=== PATIENT | female | born 1960 | race Two or more races ===

== ENCOUNTER 2018-12-03 15:52 | Emergency (ER) | payer MEDICAID, OTHER ==
[~2018-12-03] VITALS: Ht 165.1 cm; Wt 113.4 kg
[2018-12-03 16:45] LABS: Urine Bacteria NONE SEEN /hpf (None Seen); Urine Blood Negative /uL (Negative); Urine Specific Gravity 1.006 (1.001-1.035); Urine WBC 2 /hpf (0 - 5)
[2018-12-03 16:52] LABS: Basophils # (auto) 0.1 uL; Basophils % (auto) 0.5 % (0.0-2.0); Eosinophils # (auto) 0.1 uL; Eosinophils % (auto) 0.9 % (0.0-7.0); Hematocrit 44.8 % (36.0-46.0); Hemoglobin 15.3 g/dL (12.2-16.2); Lymphocytes % (auto) 29.4 % (10.0-50.0); Mean Corpuscular Hemoglobin 31.2 pg (28.0-32.0); Mean Corpuscular Hgb Conc. 34.1 g/dL (32.0-36.0); Mean Corpuscular Volume 91.6 fL (80.0-100.0); Monocytes # (auto) 0.5 uL; Monocytes % (auto) 5.1 % (0.0-12.0); Neutrophils # (auto) 6.6 uL; Neutrophils % (auto) 64.1 % (37.0-80.0); Platelet Count (auto) 356 10^3/uL (140-450); Red Blood Cells 4.89 10^6/uL (4.0-5.20); Red Cell Distribution Width 13.9 % (11.8-14.3); White Blood Cell 10.3 10^3/uL (4.4-10.8)
[2018-12-03 17:09] LABS: Alanine Aminotransferase 349 U/L (13-56); Albumin 3.7 g/dL (3.4-5.0); Anion Gap 7 (5-15); Aspartate Aminotransferase 547 U/L (15-37); BUN/Creatinine Ratio 8.9; Blood Urea Nitrogen 7 mg/dL (7-18); Calcium 8.4 mg/dL (8.5-10.1); Carbon Dioxide 27 mmol/L (21-32); Chloride 103 mmol/L (98-107); GFR African American > 60 mL/min; GFR Non-African American > 60 mL/min; Glucose 98 mg/dL (74-106); Magnesium 2.2 mg/dL (1.6-2.6); Potassium 4.1 mmol/L (3.5-5.1); Sodium 137 mmol/L (136-145)
[2018-12-03 17:14] LABS: Alkaline Phosphatase 145 U/L (45-117); Bilirubin, Total 1.8 mg/dL (0.2-1.0); Total Protein 8.2 g/dL (6.4-8.2)
[2018-12-04 01:38] VITALS: BP 157/85
[2018-12-04] MEDS ORDERED: ALUM & MAG HYDROX-SIMETH LIQ(MAALOX) 30 ML PO ONE (02:15)
[2018-12-04] MEDS ORDERED: cefTRIAXone SOD 1,000 MG VL IM ONE (02:15)
[2018-12-04] MEDS ORDERED: cefTRIAXone SOD 1,000 MG VL ONE (02:50)
== END 2018-12-04 03:15 | disposition home or self-care (01) ==
LOC: ER 15:57
DX: K29.70 Gastritis, unspecified, without bleeding (principal)
CPT/HCPCS: 36415; 74176; 80053; 81001; 83735; 84484; 85025; 93005; 96372; 99284; J0696

== ENCOUNTER 2019-05-13 09:15 | Inpatient (IN) | payer MEDICAID ==
[~2019-05-13] VITALS: Ht 165.1 cm; Wt 129.0 kg
[2019-05-13 10:10] LABS: Basophils # (auto) 0.1 uL; Basophils % (auto) 0.8 % (0.0-2.0); Eosinophils # (auto) 0 uL; Hematocrit 45.5 % (36.0-46.0); Hemoglobin 15.3 g/dL (12.2-16.2); Lymphocytes # (auto) 1.2 uL; Lymphocytes % (auto) 10.2 % (10.0-50.0); Mean Corpuscular Hemoglobin 30.7 pg (28.0-32.0); Mean Corpuscular Hgb Conc. 33.7 g/dL (32.0-36.0); Monocytes # (auto) 0.2 uL; Monocytes % (auto) 1.8 % (0.0-12.0); Neutrophils # (auto) 10.5 uL; Neutrophils % (auto) 87.2 % (37.0-80.0); Platelet Count (auto) 290 10^3/uL (140-450); Red Cell Distribution Width 15.7 % (11.8-14.3); White Blood Cell 12.1 10^3/uL (4.4-10.8)
[2019-05-13 10:22] LABS: Alanine Aminotransferase 320 U/L (13-56); Albumin 3.8 g/dL (3.4-5.0); Blood Urea Nitrogen 7 mg/dL (7-18); Calcium 9.3 mg/dL (8.5-10.1); Chloride 104 mmol/L (98-107); Glucose 200 mg/dL (74-106); Potassium 3.7 mmol/L (3.5-5.1); Sodium 136 mmol/L (136-145)
[2019-05-13 10:27] LABS: Alkaline Phosphatase 377 U/L (45-117); Anion Gap 12 (5-15); Aspartate Aminotransferase 213 U/L (15-37); BUN/Creatinine Ratio 8.6; Bilirubin, Total 6.3 mg/dL (0.2-1.0); Carbon Dioxide 20 mmol/L (21-32); GFR African American 93 mL/min; GFR Non-African American 77 mL/min; Total Protein 8.3 g/dL (6.4-8.2)
[2019-05-13] MEDS ORDERED: SODIUM CHLORIDE 0.9% 1,000 ML IV ONE (10:53)
[2019-05-13] MEDS ORDERED: SODIUM CHLORIDE 0.9% 500 ML IVB ONE (10:53)
[2019-05-13] MEDS ORDERED: KETOROLAC TROMETH 15 mg/ml 1ML VL IV ONE (11:00)
[2019-05-13] MEDS ORDERED: PROMETHAZINE HCL 25 MG/ML 1ML IV PRN (11:00)
[2019-05-13 11:48] LABS: Magnesium 2.4 mg/dL (1.6-2.6)
[2019-05-13] MEDS ORDERED: SODIUM CHLORIDE 0.9% 1,000 ML IV SCH ×2 (12:30→17:32)
[2019-05-13] MEDS ORDERED: DEXTROSE (50%) 50ML SYRG IV PRN (12:30)
[2019-05-13] MEDS ORDERED: ACETAMINOPHEN 500 MG TAB PO PRN (12:30)
[2019-05-13] MEDS ORDERED: MORPHINE SULF INJ 2 MG/ML SYRINGE 1ML IV PRN (12:30)
[2019-05-13] MEDS ORDERED: NITROGLYCERIN 0.4 MG SL TAB SL PRN (12:30)
[2019-05-13] MEDS ORDERED: ONDANSETRON HCL 4 MG/2 ML VIAL IV PRN (12:30)
[2019-05-13] MEDS ORDERED: FAMOTIDINE 20 MG TAB PO ONE (12:45)
[2019-05-13] MEDS ORDERED: PIPERACILLIN-TAZOB 3.375GM 100 ML IV ONE (12:45)
[2019-05-13 13:45] VITALS: BP 141/82
[2019-05-13] MEDS ORDERED: IPRATROPIUM BROM 0.5 MG/2.5ML INH SOL NEB SCH (14:00)
[2019-05-13] MEDS ORDERED: ALBUTEROL SULF 2.5 MG/0.5ML(0.5%) NEB SOLN NEB SCH (14:00)
--- NOTE | 2019-05-13 15:30 | NUR ---
Telemetry admit from ER ELIANA SAUER admitted to Telemetry unit after SBAR received. Patient oriented to Anabell Rodrigues, primary RN, unit, room, bed, and unit policies regarding patient care and visiting hours. Patient now on continuous telemetry monitoring, tele box # 6 and telemetry reading on arrival to unit is SINUS RHYTHM HR 90. Patient denies need for bedside oxygen, VSS. No s/s of distress or sob noted. Pt states tolerable pain level and denies need for pain meds at this time. Patient continued on IVF as ordered. Pt weighed by bedscale and encouraged to call if they need something. All questions and concerns addressed, patient verbalized understanding. Will continue to monitor
[2019-05-13] MEDS: D5W/LACTATED RINGERS 1,000 ML IV SCH ×2 (16:20→20:40)
[2019-05-13 17:11] VITALS: BP 131/76
[2019-05-13] MEDS: InsuLIN REG 1unit/0.01ml Soln (100units/ml) SC SCH (18:00)
[2019-05-13] MEDS: ACCU-CHEK COMFORT CURVE STRIP VI SCH (18:21)
[2019-05-13] MEDS: PIPERACILLIN-TAZOB 3.375GM 100 ML IV SCH (18:22)
--- NOTE | 2019-05-13 19:30 | NUR ---
Opening Shift Note Assumed care of patient, awake and alert. No S/S of distress/SOB. Pain 5/10 at this time. Ambulating to the bathroom ad christel. Pt verbalized having 8 children and now caring for her 3 grandchildren. Very pleasant and kind. Instructed on POC and to call for assist PRN, will continue to monitor for changes Q1hr and PRN.
[2019-05-13] MEDS: HYDROmorphone HCL 2 MG/ML VL IV PRN (20:00)
--- NOTE | 2019-05-13 20:00 | NUR ---
Respiratory note: ASSESSMENT FOR PRN MED NEB TX. HR 110, SPO2 96% ON ROOM AIR, RR 17, BS DIMINISHED. PT PRESENTING NO RESPIRATORY DISTRESS AT THIS TIME, WILL CONTINUE TO MONITOR.
[2019-05-13 21:48] VITALS: BP 134/98
[2019-05-14 00:06] LABS: Urine Bacteria NONE SEEN /hpf (None Seen); Urine Blood 1+ /uL (Negative); Urine Mucus FEW (None Seen); Urine WBC 6 /hpf (0 - 5)
[2019-05-14] MEDS: PIPERACILLIN-TAZOB 3.375GM 100 ML IV SCH ×4 (00:30→18:35)
--- NOTE | 2019-05-14 02:00 | NUR ---
Heart rate tachy. Asymptomatic. Heart rate wentr up to 130's at one time when ambulating to the bathroom and complaining of pain. Medicated per orders and resting at this time. Heart rate 108. Echo pending
[2019-05-14] MEDS: HYDROmorphone HCL 2 MG/ML VL IV PRN ×4 (02:33→20:00)
[2019-05-14] MEDS: D5W/LACTATED RINGERS 1,000 ML IV SCH ×4 (03:20→23:20)
[2019-05-14 05:00] VITALS: BP 116/65
[2019-05-14] MEDS: InsuLIN REG 1unit/0.01ml Soln (100units/ml) SC SCH ×4 (06:00→18:00)
[2019-05-14] MEDS: ACCU-CHEK COMFORT CURVE STRIP VI SCH ×4 (06:00→18:34)
--- NOTE | 2019-05-14 07:00 | NUR ---
Endorsed care to Anabell DIAZ. No distress noted. Resting at this time
[2019-05-14 07:08] LABS: INR 0.97 (0.9-1.15); Partial Thromboplastin Time 29.3 sec (23.64-32.05); Potassium 3.7 mmol/L (3.5-5.1)
[2019-05-14 07:17] LABS: Basophils # (auto) 0.1 uL; Basophils % (auto) 0.4 % (0.0-2.0); Eosinophils # (auto) 0.1 uL; Eosinophils % (auto) 0.5 % (0.0-7.0); Hematocrit 40.4 % (36.0-46.0); Hemoglobin 13.7 g/dL (12.2-16.2); Lymphocytes # (auto) 2.7 uL; Lymphocytes % (auto) 19.3 % (10.0-50.0); Mean Corpuscular Volume 91.1 fL (80.0-100.0); Monocytes # (auto) 0.5 uL; Monocytes % (auto) 3.8 % (0.0-12.0); Neutrophils # (auto) 10.7 uL; Platelet Count (auto) 257 10^3/uL (140-450); Red Blood Cells 4.43 10^6/uL (4.0-5.20); Red Cell Distribution Width 15.6 % (11.8-14.3); White Blood Cell 14.1 10^3/uL (4.4-10.8)
[2019-05-14 07:29] LABS: BUN/Creatinine Ratio 11.5; Bilirubin, Total 2.1 mg/dL (0.2-1.0); Calcium 8.4 mg/dL (8.5-10.1)
[2019-05-14 09:00] VITALS: BP 134/71
[2019-05-14] MEDS: FAMOTIDINE 20 MG TAB PO SCH (09:22)
[2019-05-14 13:01] VITALS: BP 127/72
--- NOTE | 2019-05-14 15:45 | NUR ---
RT NOTE: PT. ASSESSED FOR PRN BREATHING TX. NO S/S OF RESPIRATORY DISTRESS NOTED. PT. SLEEPING. DID NOT WAKE PT. TO TAKE VITALS.
[2019-05-14 17:00] VITALS: BP 129/70
[2019-05-14 22:00] VITALS: BP 123/71
[2019-05-15] MEDS: HYDROmorphone HCL 2 MG/ML VL IV PRN ×5 (01:34→22:10)
[2019-05-15 05:18] VITALS: BP 119/74
[2019-05-15] MEDS: InsuLIN REG 1unit/0.01ml Soln (100units/ml) SC SCH ×5 (06:00→23:53)
[2019-05-15] MEDS: ACCU-CHEK COMFORT CURVE STRIP VI SCH ×5 (06:00→23:53)
[2019-05-15] MEDS: PIPERACILLIN-TAZOB 3.375GM 100 ML IV SCH ×5 (06:52→23:53)
[2019-05-15] MEDS: D5W/LACTATED RINGERS 1,000 ML IV SCH ×3 (06:52→19:00)
[2019-05-15 07:24] LABS: Basophils # (auto) 0.1 uL; Basophils % (auto) 1.1 % (0.0-2.0); Eosinophils # (auto) 0.2 uL; Eosinophils % (auto) 1.4 % (0.0-7.0); Hematocrit 36.9 % (36.0-46.0); Hemoglobin 12.6 g/dL (12.2-16.2); Lymphocytes # (auto) 3.1 uL; Lymphocytes % (auto) 22.4 % (10.0-50.0); Mean Corpuscular Hgb Conc. 34.1 g/dL (32.0-36.0); Monocytes # (auto) 0.9 uL; Monocytes % (auto) 6.2 % (0.0-12.0); Neutrophils # (auto) 9.6 uL; Neutrophils % (auto) 68.9 % (37.0-80.0); Nucleated Red Blood Cells % 0.1 %; Platelet Count (auto) 227 10^3/uL (140-450); Red Blood Cells 4.06 10^6/uL (4.0-5.20); Red Cell Distribution Width 15.5 % (11.8-14.3); White Blood Cell 13.9 10^3/uL (4.4-10.8)
--- NOTE | 2019-05-15 07:34 | NUR ---
Communication for MD: Patient verbalized shes not a diabetic. Wants to know if accuchecks can be d/c'd. Has been NPO since 05/13.
--- NOTE | 2019-05-15 07:37 | NUR ---
Endorsed care to Anabell DIAZ. Medicated for pain @9955. Ambulating ad christel. Rested well throughout
[2019-05-15 07:49] LABS: Albumin 2.6 g/dL (3.4-5.0); Calcium 8.4 mg/dL (8.5-10.1); Potassium 3.5 mmol/L (3.5-5.1)
[2019-05-15 07:55] LABS: BUN/Creatinine Ratio 12.1; Bilirubin, Total 1.8 mg/dL (0.2-1.0); Total Protein 6.7 g/dL (6.4-8.2)
--- NOTE | 2019-05-15 08:40 | NUR ---
Respiratory note: PT ASSESSED FOR PRN MEDNEB TX . NO RESPIRATORY DISTRESS NOTED. TX NOT INDICATED AT THIS TIME. SPO2 95% ON RA HR 92 RR 16 B/S CLEAR . PT AWARE TO HAVE RT PAGED IF THEY BECOME SOB.
[2019-05-15 09:00] VITALS: BP 116/67
[2019-05-15] MEDS: FAMOTIDINE 20 MG TAB PO SCH (09:49)
[2019-05-15] MEDS: ENOXAPARIN SOD 40 MG/0.4 ML SYRINGE SC SCH (09:49)
[2019-05-15 13:00] VITALS: BP 151/74
--- NOTE | 2019-05-15 14:30 | NUR ---
Hospitalist at bedside MD Holloway at bedside, aware of patient's status. No new orders received at this time. Cont NPO status and cont IVF as ordered. Cont care
--- NOTE | 2019-05-15 14:48 | NUR ---
Nutrition Assessment Notes please see attached link for complete assessment Est. Needs ABW [id number] kcal (17-20 kcal/kgBW), 93-102 gms pro (1.0-1.1 gms/kgBW). Will continue to monitor pertinent labs and reassess nutrient need prn Addendum: 05/15/19 at [address] Amended: Links added.
[2019-05-15 17:12] VITALS: BP 143/70
--- NOTE | 2019-05-15 19:10 | NUR ---
Patient care endorsed endorsed care to Linette rn. Patient laying in bed no acute distress or sob. Pt's at bedside
[2019-05-15 21:45] VITALS: BP 134/73
[2019-05-16] VITALS (7 sets, daily range): BP systolic 121–150; BP diastolic 58–101
[2019-05-16] MEDS: D5W/LACTATED RINGERS 1,000 ML IV SCH ×4 (02:00→22:00)
[2019-05-16] MEDS: HYDROmorphone HCL 2 MG/ML VL IV PRN ×4 (03:28→22:27)
[2019-05-16 05:55] LABS: Basophils # (auto) 0.1 uL; Basophils % (auto) 0.4 % (0.0-2.0); Eosinophils # (auto) 0.2 uL; Eosinophils % (auto) 1.6 % (0.0-7.0); Hematocrit 36.9 % (36.0-46.0); Hemoglobin 12.5 g/dL (12.2-16.2); Lymphocytes # (auto) 2.7 uL; Lymphocytes % (auto) 20.6 % (10.0-50.0); Mean Corpuscular Hemoglobin 31.1 pg (28.0-32.0); Mean Corpuscular Hgb Conc. 33.8 g/dL (32.0-36.0); Mean Corpuscular Volume 92.1 fL (80.0-100.0); Monocytes # (auto) 0.7 uL; Monocytes % (auto) 5.3 % (0.0-12.0); Neutrophils # (auto) 9.4 uL; Neutrophils % (auto) 72.1 % (37.0-80.0); Platelet Count (auto) 238 10^3/uL (140-450); Red Blood Cells 4.01 10^6/uL (4.0-5.20); Red Cell Distribution Width 15.1 % (11.8-14.3)
[2019-05-16] MEDS: ACCU-CHEK COMFORT CURVE STRIP VI SCH ×3 (06:00→18:27)
[2019-05-16] MEDS: InsuLIN REG 1unit/0.01ml Soln (100units/ml) SC SCH ×3 (06:00→18:47)
[2019-05-16] MEDS: PIPERACILLIN-TAZOB 3.375GM 100 ML IV SCH ×3 (06:01→18:26)
[2019-05-16 06:20] LABS: Potassium 3.3 mmol/L (3.5-5.1)
[2019-05-16 06:31] LABS: Albumin 2.6 g/dL (3.4-5.0); BUN/Creatinine Ratio 7.4; Bilirubin, Total 1.5 mg/dL (0.2-1.0); Calcium 8.5 mg/dL (8.5-10.1); Total Protein 7.2 g/dL (6.4-8.2)
[2019-05-16] MEDS: ALBUTEROL SULF 2.5 MG/0.5ML(0.5%) NEB SOLN NEB PRN (07:49)
[2019-05-16] MEDS: IPRATROPIUM BROM 0.5 MG/2.5ML INH SOL NEB PRN (07:50)
[2019-05-16] MEDS: ENOXAPARIN SOD 40 MG/0.4 ML SYRINGE SC SCH (10:05)
[2019-05-16] MEDS: FAMOTIDINE 20 MG TAB PO SCH (10:05)
--- NOTE | 2019-05-16 14:08 | NUR ---
PRIMARY NURSE ON BREAK PATIENT COMPLAINED OF RLQ ABDOMINAL PAIN WITH SEVERITY SCALE OF 6/10. GAVE 0.5MG IV DILAUDID ORDERED BY MD FOR PRN PAIN.
--- NOTE | 2019-05-16 15:30 | NUR ---
IV ON RIGHT AC LEAKING. IV DC'd with clean sterile technique, catheter fully intact. Pressure dressing applied to site. Patient tolerated well. NOTE:
--- NOTE | 2019-05-16 16:00 | NUR ---
IV insertion IV access obtained, via clean sterile technique by inserting 20 gauge catheter at after attempt(s). IV secured properly. No trauma to site. Patient tolerated well. NOTE:
[2019-05-16] MEDS ORDERED: LEVOTHYROXINE SODIUM 50 MCG TAB PO ONE (16:45)
[2019-05-16] MEDS ORDERED: POTASSIUM CHL 10 Meq TABLET PO ONE (16:45)
--- NOTE | 2019-05-16 19:15 | NUR ---
Respiratory note: ASSESSED PT FOR PRN TX. PT IS CURRENTLY ON ROOM AIR: HR 86, RR 20, SPO2 95%. MED NEB TX NOT INDICATED AT THIS TIME. PT SHOWS NO S/S OR DISTRESS. INFORMED PT IF SOB TO CONTACT RESPIRATORY FOR BREATHING TX. WILL CONTINUE TO MONITOR.
--- NOTE | 2019-05-16 19:45 | NUR ---
Opening Shift Note Assumed care of patient, awake and alert and oriented x 4. No S/S of distress/SOB or pain. Patient is on room air and ambulatory. On clear liquid diet. Bed in lowest locked position, side rails up x 2, call light within reach. Instructed on POC and to call for assist PRN, will continue to monitor for changes Q1hr and PRN.
[2019-05-17] MEDS: PIPERACILLIN-TAZOB 3.375GM 100 ML IV SCH ×5 (00:15→23:56)
[2019-05-17] MEDS: ACCU-CHEK COMFORT CURVE STRIP VI SCH ×5 (00:16→23:56)
[2019-05-17] MEDS: D5W/LACTATED RINGERS 1,000 ML IV SCH ×3 (04:40→18:00)
[2019-05-17 05:00] VITALS: BP 149/74
[2019-05-17] MEDS: InsuLIN REG 1unit/0.01ml Soln (100units/ml) SC SCH ×5 (06:00→23:56)
[2019-05-17] MEDS: LEVOTHYROXINE SODIUM 50 MCG TAB PO SCH (06:03)
[2019-05-17 06:29] LABS: Basophils # (auto) 0.1 uL; Basophils % (auto) 0.5 % (0.0-2.0); Eosinophils # (auto) 0.2 uL; Eosinophils % (auto) 2.3 % (0.0-7.0); Hematocrit 37.5 % (36.0-46.0); Hemoglobin 12.7 g/dL (12.2-16.2); Lymphocytes # (auto) 2.4 uL; Lymphocytes % (auto) 21.8 % (10.0-50.0); Mean Corpuscular Hemoglobin 31.3 pg (28.0-32.0); Mean Corpuscular Hgb Conc. 33.9 g/dL (32.0-36.0); Mean Corpuscular Volume 92.3 fL (80.0-100.0); Monocytes # (auto) 0.6 uL; Monocytes % (auto) 5.6 % (0.0-12.0); Neutrophils # (auto) 7.7 uL; Neutrophils % (auto) 69.8 % (37.0-80.0); Platelet Count (auto) 264 10^3/uL (140-450); Red Blood Cells 4.07 10^6/uL (4.0-5.20); Red Cell Distribution Width 14.9 % (11.8-14.3)
[2019-05-17 06:42] LABS: Albumin 2.6 g/dL (3.4-5.0); Calcium 8.6 mg/dL (8.5-10.1); Potassium 3.3 mmol/L (3.5-5.1)
[2019-05-17 06:45] LABS: BUN/Creatinine Ratio 6.5; Bilirubin, Total 1.3 mg/dL (0.2-1.0); Total Protein 7.1 g/dL (6.4-8.2)
--- NOTE | 2019-05-17 06:51 | NUR ---
Closing shift note Patient resting in bed. No acute S/S of distress or SOB noted. Bed in lowest locked position, side rails up x 2, call light within reach. Will endorse care to dayshift RN.
--- NOTE | 2019-05-17 07:02 | NUR ---
Respiratory note: ASSESSED PT FOR PRN TX. NOT INDICATED AT THIS TIME. HR 86, SPO2 96% RA BSC, RR 18. NO RESP DISTRESS NOTED AT THIS TIME. PT KNOWS TO HAVE RT PAGED IF TX NEEDED.
[2019-05-17 09:00] VITALS: BP 142/92
--- NOTE | 2019-05-17 10:00 | NUR ---
IV removal IV ON LEFT FOREARM PUFFY AND TENDER. IV DC'd with clean sterile technique, catheter fully intact. Pressure dressing applied to site. Patient tolerated well. NOTE:
[2019-05-17] MEDS: ENOXAPARIN SOD 40 MG/0.4 ML SYRINGE SC SCH (10:19)
[2019-05-17] MEDS: FAMOTIDINE 20 MG TAB PO SCH (10:30)
--- NOTE | 2019-05-17 10:30 | NUR ---
IV insertion IV access obtained, via clean sterile technique by inserting 20 gauge catheter at RIGHT FOREARM after 1 attempt(s). IV secured properly. No trauma to site. Patient tolerated well. NOTE:
[2019-05-17 13:00] VITALS: BP 158/78
[2019-05-17] MEDS: HYDROmorphone HCL 2 MG/ML VL IV PRN ×2 (13:23→20:34)
[2019-05-17] MEDS ORDERED: POTASSIUM CHL 10 Meq TABLET PO ONE (16:15)
[2019-05-17 17:20] VITALS: BP 139/84
[2019-05-17] MEDS: Ensure Enlive Strawberry 8oz Bottle PO SCH (18:37)
[2019-05-17] MEDS: IPRATROPIUM BROM 0.5 MG/2.5ML INH SOL NEB PRN (19:18)
[2019-05-17] MEDS: ALBUTEROL SULF 2.5 MG/0.5ML(0.5%) NEB SOLN NEB PRN (19:18)
--- NOTE | 2019-05-17 19:30 | NUR ---
CLOSING NOTES PT RESTING IN BED. NO DISTRESS NOTED. DENIES PAIN AT THIS TIME. STATED FEELING BETTER. ABLE TO TOLERATE DIET.
--- NOTE | 2019-05-17 19:40 | NUR ---
Opening Shift Note Assumed care of patient, awake, alert and oriented x 4. Patient on room air and on bedrest. Kyung is patent and draining. No S/S of distress/SOB. Patient reported pain level of 7. Bed in lowest locked position, side rails up x 2, call light within reach. Insructed on POC and to callfor assist PRN, will continue to monitor for changes Q1hr and PRN. Addendum: 05/17/19 at 2105 by Sheri Chan RN RN Wrong patient. Disregard note.
--- NOTE | 2019-05-17 19:50 | NUR ---
Opening Shift Note Assumed care of patient, awake, alert and oriented x 4. Patient on room air and ambulatory. No S/S of distress/SOB or pain. Bed in lowest locked position, side rails up x 2, call light within reach. Instructed on POC and to call for assist PRN, will continue to monitor for changes Q1hr and PRN.
[2019-05-17 20:00] VITALS: BP 135/74
[2019-05-17 22:00] VITALS: BP 135/74
[2019-05-18] MEDS: D5W/LACTATED RINGERS 1,000 ML IV SCH ×3 (00:40→14:00)
[2019-05-18 05:00] VITALS: BP 135/77
[2019-05-18] MEDS: PIPERACILLIN-TAZOB 3.375GM 100 ML IV SCH ×2 (05:29→12:00)
[2019-05-18] MEDS: ACCU-CHEK COMFORT CURVE STRIP VI SCH ×2 (05:29→11:46)
[2019-05-18] MEDS: InsuLIN REG 1unit/0.01ml Soln (100units/ml) SC SCH ×2 (05:29→11:46)
[2019-05-18] MEDS: LEVOTHYROXINE SODIUM 50 MCG TAB PO SCH (06:19)
[2019-05-18 06:40] LABS: Basophils # (auto) 0 uL; Basophils % (auto) 0.5 % (0.0-2.0); Eosinophils # (auto) 0.3 uL; Eosinophils % (auto) 3.5 % (0.0-7.0); Hematocrit 37.2 % (36.0-46.0); Hemoglobin 12.4 g/dL (12.2-16.2); Lymphocytes # (auto) 2.4 uL; Lymphocytes % (auto) 28.2 % (10.0-50.0); Mean Corpuscular Hemoglobin 30.8 pg (28.0-32.0); Mean Corpuscular Hgb Conc. 33.4 g/dL (32.0-36.0); Mean Corpuscular Volume 92.1 fL (80.0-100.0); Monocytes # (auto) 0.5 uL; Monocytes % (auto) 5.7 % (0.0-12.0); Neutrophils # (auto) 5.4 uL; Neutrophils % (auto) 62.1 % (37.0-80.0); Platelet Count (auto) 291 10^3/uL (140-450); Red Blood Cells 4.04 10^6/uL (4.0-5.20); Red Cell Distribution Width 14.5 % (11.8-14.3); White Blood Cell 8.6 10^3/uL (4.4-10.8)
--- NOTE | 2019-05-18 06:41 | NUR ---
PT ASSESSED FOR PRN HHN TX. PT IS ON ROOM AIR, SPO2 96%. NO S/S OF RESPIRATORY DISTRESS. PT AWARE OF TX AVAILABLE TO HER IF INDICATED. WILL CONTINUE TO MONITOR.
[2019-05-18 06:49] LABS: Potassium 3.8 mmol/L (3.5-5.1)
[2019-05-18 06:51] LABS: BUN/Creatinine Ratio 7.9
--- NOTE | 2019-05-18 07:00 | NUR ---
Opening Shift Note Assumed care of patient, awake, alert, and oriented x4. No S/S of distress/SOB or pain. IV in right forearm asymptomatic, intact, patent, and infusing D5 LR at 100 mL/hour. Bed locked and in lowest position and call light is within reach. Instructed on POC and to call for assist PRN, and patient verbalized understanding. Will continue to monitor for changes Q1hr and PRN.
[2019-05-18] MEDS: Ensure Enlive Strawberry 8oz Bottle PO SCH ×2 (08:00→12:00)
[2019-05-18 09:11] VITALS: BP 150/84
[2019-05-18] MEDS: FAMOTIDINE 20 MG TAB PO SCH (09:33)
[2019-05-18] MEDS: ENOXAPARIN SOD 40 MG/0.4 ML SYRINGE SC SCH (09:34)
--- NOTE | 2019-05-18 12:30 | NUR ---
Patient complaining of pain at IV site, IV was infiltrated. IV was removed, catheter was intact and Coban and gauze was placed, patient tolerated removal well. Signed: 05/18/19 at 1513 by MAT CAMPOS <Co-Signature Required> Co-Signed: 05/18/19 at 1513 by CLARA BUCHANAN RN RN
[2019-05-18 13:00] VITALS: BP 151/113
--- NOTE | 2019-05-18 14:21 | NUR ---
Nutrition Follow-up Notes Wt.: 129.0 kg as of yesterday. Pt's, asleep, no immediate family member at bedside when rounded this morning. Pt's no signs of distress noted earlier, currently on Regular diet with adequate PO intake aeb 100% ave. consumed meals (x6) in last 2.5 days. Est. Needs BW [id number] kcal (23-25kcal/kgBW), 82-90 gms pro (1.0-1.1 gms/kgBW). Will continue to monitor pertinent labs and reassess nutrient need prn. Labs: Gluc 118, BUN 6 L, Amylase 23 L, Lipase 70 L Skin: Rubin scale 22, low risk, skin intact per kiln burner helper. GI: Pt had 1 BM this morning per kiln burner helper. PES: Altered nutrition related lab values r/t acute/chronic medical condition aeb hyperglycemia, Low BUN, Amylase, Lipase Obesity r/t food intake more than body requirement aeb 227% IBW, BMI 47.3 kg/m2 and increased body adiposity Will continue to monitor PO intake, skin status, pertinent labs and weight trend. F/u in 3 to 5 days. Rec.: 1.) Continue close supervision during meals. 2.) Refer pt to RD for further nutrition education and weight monitoring upon discharge. 3.) Continue current plan of care.
--- NOTE | 2019-05-18 14:45 | NUR ---
Dr. Holloway, Hospitalist, at bedside; new orders received.
[2019-05-18 15:54] VITALS: BP 151/113
--- NOTE | 2019-05-18 16:58 | NUR ---
Discharge instructions given as ordered. Encourage to follow up with PMD as instructed. All questions and concerns addressed. Patient verbalized understanding. Medication reconciliation form completed and copy given to patient. Patient walked to vehicle via wheelchair with all personal belongings, accompanied family member. No distress noted at time of departure.
== END 2019-05-18 16:00 | disposition home or self-care (01) | DRG 720 ==
LOC: ER 09:20 → TELE 09:21 → TELE-WESTW 15:24 → WEST WING 05-15 23:36
PROVIDERS: ADMIT Nurse Practitioner Acute Care; ATTEND Internal Medicine
DX: A41.9 Sepsis, unspecified organism (principal); K85.10 Biliary acute pancreatitis without necrosis or infection; E66.01 Morbid (severe) obesity due to excess calories; E44.0 Moderate protein-calorie malnutrition; Z68.42 Body mass index [BMI] 45.0-49.9, adult; R16.0 Hepatomegaly, not elsewhere classified; K76.0 Fatty (change of) liver, not elsewhere classified; E87.6 Hypokalemia; E03.9 Hypothyroidism, unspecified; K80.20 Calculus of gallbladder without cholecystitis without obstruction
CPT/HCPCS: 36415; 71046; 74176; 76705; 78226; 80048; 80053; 81001; 82150; 82962; 83690; 83735; 84443; 84484; 85025; 85610; 85730; 93005; 93306; 94640; 96361; 96365; 96375; G0378; J2543; J7042

== ENCOUNTER 2023-10-26 17:27 | Inpatient (IN) | payer MEDICAID ==
[~2023-10-26] VITALS: Ht 167.6 cm; Wt 125.7 kg
[2023-10-26] VITALS (20 sets, daily range): BP systolic 86–117; BP diastolic 58–70; PULSE 63–101; RESP 11–28; TEMP 97.7; O2SAT 91–100
[2023-10-26] MEDS ORDERED: SODIUM CHLORIDE 0.9% 1,000 ML IV ONE (17:45)
[2023-10-26] MEDS ORDERED: ASPirin 81 mg TAB PO ONE (17:45)
[2023-10-26 17:58] LABS: Basophils # (auto) 0 10 ^3/uL (0-0.2); Basophils % (auto) 0.3 % (0.0-2.0); Eosinophils # (auto) 0.1 10 ^3/uL (0-0.8); Eosinophils % (auto) 0.8 % (0.0-7.0); Hematocrit 31.7 % (36.0-46.0); Hemoglobin 9.9 g/dL (12.2-16.2); Lymphocytes # (auto) 2.4 10 ^3/uL (0.4-5.4); Lymphocytes % (auto) 20.6 % (10.0-50.0); Mean Corpuscular Hemoglobin 23.8 pg (28.0-32.0); Mean Corpuscular Hgb Conc. 31.3 g/dL (32.0-36.0); Monocytes # (auto) 0.5 10 ^3/uL (0-1.3); Monocytes % (auto) 4.6 % (0.0-12.0); Neutrophils # (auto) 8.5 10 ^3/uL (1.6-8.6); Neutrophils % (auto) 73.7 % (37.0-80.0); Red Blood Cells 4.17 10^6/uL (4.0-5.20); Red Cell Distribution Width 17.3 % (11.8-14.3); White Blood Cell 11.6 10^3/uL (4.4-10.8)
[2023-10-26] MEDS ORDERED: ANGIOMAX 250 MG VIAL IV ONE (18:12)
[2023-10-26 18:13] LABS: Alanine Aminotransferase 10 U/L (7-40); Albumin 4.6 g/dL (3.2-4.8); Alkaline Phosphatase 92 U/L (46-116); Anion Gap 9 (5-15); Aspartate Aminotransferase 14 U/L (13-40); BUN/Creatinine Ratio 15.7 (10.0-20.0); Bilirubin, Total 0.3 mg/dL (0.2-1.0); Blood Urea Nitrogen 13 mg/dL (9-23); Calcium 9.2 mg/dL (8.5-10.1); Carbon Dioxide 24 mmol/L (20-30); Chloride 105 mmol/L (98-107); Glucose 193 mg/dL (74-106); Sodium 138 mmol/L (136-145); Total Protein 7.2 g/dL (5.7-8.2)
[2023-10-26] MEDS ORDERED: VERAPAMIL 2.5MG/ML INJ 2ML VIAL IV ONE (18:13)
[2023-10-26] MEDS ORDERED: fentaNYL CITRATE 100 MCG/2 ML VL ONE (18:13)
[2023-10-26] MEDS ORDERED: MIDAZOLAM HCL 2MG/2ML 2ml VIAL (1mg/ml) ONE (18:14)
[2023-10-26] MEDS ORDERED: SODIUM CHL 0.9% 50 ML ONE (18:14)
[2023-10-26] MEDS ORDERED: HEPARIN IN NS 1000Units/500mL 1,500 ML ONE (18:14)
[2023-10-26] MEDS ORDERED: IODIXANOL 320MG/ML 100ML BTL IV ONE (18:14)
[2023-10-26] MEDS ORDERED: LIDOCAINE 2%HCL (LOCAL ANESTH.) INJ 20ML MDV ONE (18:14)
[2023-10-26] MEDS ORDERED: MORPHINE SULFATE INJ 2 MG/ml SYRG IV PRN ×2 (18:15→20:00)
[2023-10-26] MEDS ORDERED: ONDANSETRON HCL 4 MG/2 ML VIAL IV PRN (18:15)
[2023-10-26] MEDS ORDERED: NITROGLYCERIN 0.4 MG SL TAB SL PRN ×2 (18:15→20:00)
[2023-10-26] MEDS ORDERED: SODIUM CHLORIDE 0.9% 1,000 ML IV SCH (18:15)
[2023-10-26] MEDS ORDERED: ACETAMINOPHEN 325 MG TAB PO PRN (18:15)
[2023-10-26 18:17] LABS: INR 1.01 (0.9-1.15); Partial Thromboplastin Time 29.6 SEC (24.5-34.5); Prothrombin Time 10.6 sec (9.3-11.8)
[2023-10-26 18:33] LABS: Triglycerides 136 mg/dL (< 150)
[2023-10-26 18:34] LABS: LDL Cholesterol 160 mg/dL (< 100)
[2023-10-26 18:35] LABS: Cholesterol 193 mg/dL (< 200); HDL Cholesterol 33 mg/dL (40-59)
[2023-10-26] MEDS ORDERED: NOREPINEPHRINE 8 MG/250ML KIT 250 ML IV ONE (18:42)
[2023-10-26] MEDS: NOREPINEPHRINE 8 MG/250ML KIT 250 ML IV SCH (18:53)
[2023-10-26] MEDS ORDERED: TICAGRELOR 90 MG TAB ONE (18:59)
[2023-10-26] MEDS ORDERED: LEVOTHYROXINE SODIUM 25 MCG TAB PO ONE (19:00)
[2023-10-26] MEDS ORDERED: EPTIFIBATIDE INJ (2MG/ML) 10ML VIAL IV ONE ×2 (19:03→19:04)
[2023-10-26] MEDS ORDERED: EPTIFIBATIDE DRIP(0.75MG/ML) 100 ML IV ONE ×2 (19:30→19:59)
[2023-10-26] MEDS ORDERED: AMIODARONE BOLUS KIT 100 ML IV ONE ×2 (21:00→21:36)
[2023-10-26] MEDS ORDERED: METOPROLOL TARTRATE 1MG/1ML-5ML VIAL IV ONE ×2 (21:53→22:00)
[2023-10-26] MEDS ORDERED: AMIODARONE 450mg/250ml AE 250 ML IV ONE (22:12)
[2023-10-26] MEDS ORDERED: AMIODARONE 450mg/250ml AE 250 ML IV SCH (22:30)
[2023-10-27] VITALS (97 sets, daily range): BP systolic 73–141; BP diastolic 39–90; PULSE 79–113; RESP 11–32; TEMP 97.7–98.6; O2SAT 95–100
[2023-10-27] MEDS: AMIODARONE 450mg/250ml AE 250 ML IV SCH ×2 (04:02→08:22)
[2023-10-27 05:30] LABS: Chloride 104 mmol/L (98-107); Potassium 4.2 mmol/L (3.5-5.1); Sodium 136 mmol/L (136-145)
[2023-10-27 05:31] LABS: Anion Gap 10 (5-15); Calcium 8.4 mg/dL (8.7-10.4); Carbon Dioxide 22 mmol/L (20-30)
[2023-10-27 05:36] LABS: BUN/Creatinine Ratio 14.8 (10.0-20.0); Blood Urea Nitrogen 12 mg/dL (9-23); Glucose 228 mg/dL (74-106)
[2023-10-27 05:37] LABS: Magnesium 2.1 mg/dL (1.6-2.6)
[2023-10-27 05:38] LABS: Phosphorus 2.3 mg/dL (2.4-5.1)
[2023-10-27 05:48] LABS: Basophils # (auto) 0 10 ^3/uL (0-0.2); Eosinophils # (auto) 0 10 ^3/uL (0-0.8); Hemoglobin 9.1 g/dL (12.2-16.2); Monocytes # (auto) 0.7 10 ^3/uL (0-1.3)
[2023-10-27 05:51] LABS: Hematocrit 29.3 % (36.0-46.0); Lymphocytes # (auto) 2.3 10 ^3/uL (0.4-5.4); Lymphocytes % (auto) 16.9 % (10.0-50.0); Mean Corpuscular Hemoglobin 23.8 pg (28.0-32.0); Mean Corpuscular Hgb Conc. 31.1 g/dL (32.0-36.0); Mean Corpuscular Volume 76.5 fL (80.0-100.0); Monocytes % (auto) 5.5 % (0.0-12.0); Neutrophils # (auto) 10.6 10 ^3/uL (1.6-8.6); Neutrophils % (auto) 77.6 % (37.0-80.0); Red Blood Cells 3.82 10^6/uL (4.0-5.20); Red Cell Distribution Width 17.3 % (11.8-14.3); White Blood Cell 13.7 10^3/uL (4.4-10.8)
[2023-10-27] MEDS ORDERED: METOPROLOL TARTRATE 1MG/1ML-5ML VIAL IV ONE (08:30)
[2023-10-27] MEDS ORDERED: MAGNESIUM SULFATE 1GM/100ML 100 ML IV ONE (08:30)
[2023-10-27] MEDS: ATORVASTATIN 20 MG TAB PO SCH (10:00)
[2023-10-27] MEDS: TICAGRELOR 90 MG TAB PO SCH ×2 (10:00→10:11)
[2023-10-27] MEDS: ASPirin 81 mg TAB PO SCH (10:11)
[2023-10-27] MEDS ORDERED: FUROSEMIDE 20 MG/2 ML VIAL IV ONE (11:00)
[2023-10-27] MEDS ORDERED: OPTISON 3ml Vial for INJ IV ONE (11:39)
[2023-10-27] MEDS: LEVOTHYROXINE SODIUM 25 MCG TAB PO SCH (12:16)
[2023-10-27] MEDS ORDERED: PSEUDOEPHEDRINE HCL 30 MG TAB PO PRN (13:00)
[2023-10-27] MEDS: PSEUDOEPHEDRINE HCL 30 MG TAB PO PRN (16:02)
[2023-10-27] MEDS: NOREPINEPHRINE 8 MG/250ML KIT 250 ML IV SCH (19:15)
[2023-10-28] VITALS (97 sets, daily range): BP systolic 82–122; BP diastolic 42–78; PULSE 83–107; RESP 8–30; TEMP 97.7–99.2; O2SAT 87–100
[2023-10-28] MEDS: AMIODARONE 450mg/250ml AE 250 ML IV SCH (00:20)
[2023-10-28] MEDS: ATORVASTATIN 20 MG TAB PO SCH (00:21)
[2023-10-28] MEDS: TICAGRELOR 90 MG TAB PO SCH ×2 (00:21→10:11)
[2023-10-28] MEDS: CARVEDILOL 3.125 MG TAB PO SCH ×3 (00:22→22:00)
[2023-10-28 06:26] LABS: Chloride 104 mmol/L (98-107); Potassium 3.7 mmol/L (3.5-5.1); Sodium 135 mmol/L (136-145)
[2023-10-28 06:27] LABS: Anion Gap 9 (5-15); Calcium 8.8 mg/dL (8.5-10.1); Carbon Dioxide 22 mmol/L (20-30)
[2023-10-28 06:29] LABS: Hemoglobin 9.4 g/dL (12.2-16.2); Lymphocytes # (auto) 3.3 10 ^3/uL (0.4-5.4); Mean Corpuscular Volume 77.2 fL (80.0-100.0); Neutrophils # (auto) 11.4 10 ^3/uL (1.6-8.6); Nucleated Red Blood Cells % 0.1 %
[2023-10-28 06:32] LABS: BUN/Creatinine Ratio 10.7 (10.0-20.0); Blood Urea Nitrogen 8 mg/dL (9-23); Glucose 119 mg/dL (74-106)
[2023-10-28 06:34] LABS: Basophils # (auto) 0 10 ^3/uL (0-0.2); Basophils % (auto) 0.2 % (0.0-2.0); Eosinophils # (auto) 0 10 ^3/uL (0-0.8); Eosinophils % (auto) 0.2 % (0.0-7.0); Hematocrit 29.9 % (36.0-46.0); Lymphocytes % (auto) 21.1 % (10.0-50.0); Mean Corpuscular Hemoglobin 24.2 pg (28.0-32.0); Mean Corpuscular Hgb Conc. 31.4 g/dL (32.0-36.0); Monocytes # (auto) 0.7 10 ^3/uL (0-1.3); Monocytes % (auto) 4.6 % (0.0-12.0); Neutrophils % (auto) 73.9 % (37.0-80.0); Red Blood Cells 3.88 10^6/uL (4.0-5.20); Red Cell Distribution Width 17.3 % (11.8-14.3); White Blood Cell 15.5 10^3/uL (4.4-10.8)
[2023-10-28] MEDS: LEVOTHYROXINE SODIUM 25 MCG TAB PO SCH (08:26)
[2023-10-28] MEDS ORDERED: FUROSEMIDE 40 MG/4 ML VIAL IV ONE (09:30)
[2023-10-28] MEDS: ASPirin 81 mg TAB PO SCH (10:11)
[2023-10-28] MEDS: AMIODARONE HCL 200 MG TAB PO SCH (10:12)
[2023-10-28 10:41] LABS: Free T3 2.63 pg/mL (2.3-4.2)
[2023-10-28 10:43] LABS: Free T4 (Free Thyroxine) 0.53 ng/dL (0.89-1.76)
[2023-10-28] MEDS ORDERED: ALBUTEROL SULF 2.5 MG/0.5ML(0.5%) NEB SOLN NEB SCH (18:00)
[2023-10-28] MEDS: ALBUTEROL SULF 2.5 MG/0.5ML(0.5%) NEB SOLN NEB PRN (18:46)
[2023-10-29] VITALS (55 sets, daily range): BP systolic 91–142; BP diastolic 56–85; PULSE 60–103; RESP 12–30; TEMP 97.7–99.8; O2SAT 95–100
[2023-10-29] MEDS: TICAGRELOR 90 MG TAB PO SCH ×3 (02:05→21:51)
[2023-10-29] MEDS: AMIODARONE HCL 200 MG TAB PO SCH ×3 (02:05→21:50)
[2023-10-29] MEDS: ATORVASTATIN 20 MG TAB PO SCH ×2 (02:06→21:50)
[2023-10-29] MEDS: ALBUTEROL SULF 2.5 MG/0.5ML(0.5%) NEB SOLN NEB PRN ×3 (02:08→11:15)
[2023-10-29 06:30] LABS: Basophils # (auto) 0 10 ^3/uL (0-0.2); Eosinophils # (auto) 0.1 10 ^3/uL (0-0.8); Hemoglobin 8.3 g/dL (12.2-16.2); Lymphocytes # (auto) 3.6 10 ^3/uL (0.4-5.4)
[2023-10-29 06:33] LABS: Basophils % (auto) 0.4 % (0.0-2.0); Hematocrit 26.4 % (36.0-46.0); Lymphocytes % (auto) 26.5 % (10.0-50.0); Mean Corpuscular Hemoglobin 23.5 pg (28.0-32.0); Mean Corpuscular Hgb Conc. 31.4 g/dL (32.0-36.0); Mean Corpuscular Volume 74.9 fL (80.0-100.0); Monocytes # (auto) 0.8 10 ^3/uL (0-1.3); Neutrophils % (auto) 66.1 % (37.0-80.0); Red Blood Cells 3.53 10^6/uL (4.0-5.20); Red Cell Distribution Width 16.7 % (11.8-14.3); White Blood Cell 13.6 10^3/uL (4.4-10.8)
[2023-10-29 06:41] LABS: Chloride 103 mmol/L (98-107); Potassium 3.6 mmol/L (3.5-5.1); Sodium 134 mmol/L (136-145)
[2023-10-29 06:42] LABS: Anion Gap 6 (5-15); Calcium 8.3 mg/dL (8.7-10.4); Carbon Dioxide 25 mmol/L (20-30)
[2023-10-29 06:47] LABS: BUN/Creatinine Ratio 16.5 (10.0-20.0); Blood Urea Nitrogen 13 mg/dL (9-23); Glucose 108 mg/dL (74-106)
[2023-10-29] MEDS: PSEUDOEPHEDRINE HCL 30 MG TAB PO PRN (07:21)
[2023-10-29] MEDS: LEVOTHYROXINE SODIUM 25 MCG TAB PO SCH (07:21)
[2023-10-29] MEDS: ASPirin 81 mg TAB PO SCH (09:46)
[2023-10-29] MEDS: CARVEDILOL 3.125 MG TAB PO SCH ×2 (11:24→21:51)
[2023-10-29] MEDS: IPRATROPIUM BROM 0.5 MG/2.5ML INH SOL NEB SCH ×3 (14:00→22:35)
[2023-10-29] MEDS: ALBUTEROL SULF 2.5 MG/0.5ML(0.5%) NEB SOLN NEB SCH ×3 (14:00→22:35)
[2023-10-29] MEDS: NOREPINEPHRINE 8 MG/250ML KIT 250 ML IV SCH ×2 (15:56→19:15)
[2023-10-30] VITALS (22 sets, daily range): BP systolic 110–125; BP diastolic 61–73; PULSE 82–100; RESP 16–21; TEMP 98–98.4; O2SAT 94–100
[2023-10-30] MEDS: IPRATROPIUM BROM 0.5 MG/2.5ML INH SOL NEB SCH ×6 (02:26→22:21)
[2023-10-30] MEDS: ALBUTEROL SULF 2.5 MG/0.5ML(0.5%) NEB SOLN NEB SCH ×6 (02:27→22:21)
[2023-10-30] MEDS: LEVOTHYROXINE SODIUM 25 MCG TAB PO SCH (06:12)
[2023-10-30 06:24] LABS: Anion Gap 9 (5-15); Carbon Dioxide 21 mmol/L (20-30); Chloride 105 mmol/L (98-107); Potassium 3.8 mmol/L (3.5-5.1); Sodium 135 mmol/L (136-145)
[2023-10-30 06:25] LABS: Calcium 8.6 mg/dL (8.5-10.1)
[2023-10-30 06:30] LABS: BUN/Creatinine Ratio 11.7 (10.0-20.0); Blood Urea Nitrogen 9 mg/dL (9-23); Glucose 106 mg/dL (74-106)
[2023-10-30 06:35] LABS: Basophils # (auto) 0.1 10 ^3/uL (0-0.2); Basophils % (auto) 0.5 % (0.0-2.0); Eosinophils # (auto) 0.2 10 ^3/uL (0-0.8); Eosinophils % (auto) 1.5 % (0.0-7.0); Hematocrit 29.8 % (36.0-46.0); Hemoglobin 8.7 g/dL (12.2-16.2); Lymphocytes # (auto) 2.5 10 ^3/uL (0.4-5.4); Lymphocytes % (auto) 20.6 % (10.0-50.0); Mean Corpuscular Hemoglobin 23.6 pg (28.0-32.0); Mean Corpuscular Hgb Conc. 29.1 g/dL (32.0-36.0); Mean Corpuscular Volume 81.2 fL (80.0-100.0); Monocytes # (auto) 0.7 10 ^3/uL (0-1.3); Monocytes % (auto) 5.6 % (0.0-12.0); Neutrophils # (auto) 8.7 10 ^3/uL (1.6-8.6); Neutrophils % (auto) 71.8 % (37.0-80.0); Red Blood Cells 3.67 10^6/uL (4.0-5.20); Red Cell Distribution Width 17.7 % (11.8-14.3); White Blood Cell 12.1 10^3/uL (4.4-10.8)
[2023-10-30] MEDS: AMIODARONE HCL 200 MG TAB PO SCH ×2 (09:40→21:53)
[2023-10-30] MEDS: ASPirin 81 mg TAB PO SCH (09:40)
[2023-10-30] MEDS: CARVEDILOL 3.125 MG TAB PO SCH ×2 (09:42→21:54)
[2023-10-30] MEDS: TICAGRELOR 90 MG TAB PO SCH ×2 (09:43→21:54)
[2023-10-30] MEDS: ATORVASTATIN 20 MG TAB PO SCH (21:53)
[2023-10-31] VITALS (21 sets, daily range): BP systolic 104–120; BP diastolic 45–63; PULSE 78–93; RESP 16–20; TEMP 98.1–98.7; O2SAT 92–100
[2023-10-31] MEDS: ALBUTEROL SULF 2.5 MG/0.5ML(0.5%) NEB SOLN NEB SCH ×6 (02:16→22:17)
[2023-10-31] MEDS: IPRATROPIUM BROM 0.5 MG/2.5ML INH SOL NEB SCH ×6 (02:16→22:17)
[2023-10-31] MEDS: LEVOTHYROXINE SODIUM 25 MCG TAB PO SCH (06:36)
[2023-10-31] MEDS: ASPirin 81 mg TAB PO SCH (10:07)
[2023-10-31] MEDS: TICAGRELOR 90 MG TAB PO SCH ×2 (10:07→21:53)
[2023-10-31] MEDS: AMIODARONE HCL 200 MG TAB PO SCH ×2 (10:08→21:52)
[2023-10-31] MEDS: CARVEDILOL 3.125 MG TAB PO SCH ×2 (10:08→21:53)
[2023-10-31] MEDS ORDERED: ASPI-325 PO (11:59)
[2023-10-31] MEDS ORDERED: CAR3125T PO (11:59)
[2023-10-31] MEDS ORDERED: TICA90TA PO (11:59)
[2023-10-31] MEDS ORDERED: AMIO200T33 PO (11:59)
[2023-10-31] MEDS ORDERED: ATOR20TA50 PO (11:59)
[2023-10-31] MEDS: ATORVASTATIN 20 MG TAB PO SCH (21:52)
[2023-11-01] VITALS (12 sets, daily range): BP systolic 103–127; BP diastolic 59–75; PULSE 76–84; RESP 18–21; TEMP 97.6–98.3; O2SAT 94–100
[2023-11-01] MEDS: IPRATROPIUM BROM 0.5 MG/2.5ML INH SOL NEB SCH ×5 (02:00→15:06)
[2023-11-01] MEDS: ALBUTEROL SULF 2.5 MG/0.5ML(0.5%) NEB SOLN NEB SCH ×5 (02:00→15:06)
[2023-11-01] MEDS: LEVOTHYROXINE SODIUM 25 MCG TAB PO SCH (05:57)
[2023-11-01] MEDS: AMIODARONE HCL 200 MG TAB PO SCH (09:31)
[2023-11-01] MEDS: ASPirin 81 mg TAB PO SCH (09:31)
[2023-11-01] MEDS: TICAGRELOR 90 MG TAB PO SCH (09:31)
[2023-11-01] MEDS: CARVEDILOL 3.125 MG TAB PO SCH (09:32)
[2023-11-01] MEDS ORDERED: ALBUAER3 IN (11:28)
== END 2023-11-01 17:55 | disposition home or self-care (01) | DRG 174 ==
LOC: ER 17:27 → EDBD 17:27 → TELE 18:04 → ICU CENTRL 21:17 → DOU IN ICU 10-29 05:13 → TELE-EAST 10-30 00:50
PROVIDERS: ADMIT Internal Medicine; ATTEND Nurse Practitioner Acute Care
PROC: 027135Z Dilation of Coronary Artery, Two Arteries with Two Drug-eluting Intraluminal Devices, Percutaneous Approach (ICD-10-PCS; principal; 2023-10-26)
PROC: B211YZZ Fluoroscopy of Multiple Coronary Arteries using Other Contrast (ICD-10-PCS; 2023-10-26)
PROC: 02C03ZZ Extirpation of Matter from Coronary Artery, One Artery, Percutaneous Approach (ICD-10-PCS; 2023-10-26)
DX: I21.09 ST elevation (STEMI) myocardial infarction involving other coronary artery of anterior wall (principal); I47.20 Ventricular tachycardia, unspecified; I95.9 Hypotension, unspecified; I10 Essential (primary) hypertension; E66.01 Morbid (severe) obesity due to excess calories; E03.9 Hypothyroidism, unspecified; Z68.41 Body mass index [BMI] 40.0-44.9, adult; Z80.0 Family history of malignant neoplasm of digestive organs; Z83.3 Family history of diabetes mellitus; Z71.3 Dietary counseling and surveillance; N93.9 Abnormal uterine and vaginal bleeding, unspecified; R06.03 Acute respiratory distress
CPT/HCPCS: 36415; 71045; 76830; 76856; 80048; 80053; 80061; 83036; 83735; 83880; 84100; 84439; 84443; 84481; 84484; 85025; 85379; 85610; 85730; 87081; 92941; 93005; 93306; 93454; 94640; 97110; 97116; 97163; 99152; G0378; J2250; Q9956; Q9967

== ENCOUNTER 2023-11-19 09:28 | Inpatient (IN) | payer MEDICAID ==
[~2023-11-19] VITALS: Ht 165.1 cm; Wt 120.6 kg
[2023-11-19] VITALS (12 sets, daily range): BP systolic 100–140; BP diastolic 47–77; PULSE 82–91; RESP 14–26; TEMP 97.8–98.2; O2SAT 98–99
[~2023-11-19 09:28] MED LIST: ALBUAER3 IN; AMIO200T33 PO; ASPI-325 PO; ATOR20TA50 PO; CAR3125T PO; TICA90TA PO
[2023-11-19 10:38] LABS: Eosinophils # (auto) 0.1 10 ^3/uL (0-0.8)
[2023-11-19 10:39] LABS: Basophils # (auto) 0 10 ^3/uL (0-0.2); Basophils % (auto) 0.5 % (0.0-2.0); Chloride 106 mmol/L (98-107); Eosinophils % (auto) 1.5 % (0.0-7.0); Hematocrit 15.8 % (36.0-46.0); Lymphocytes # (auto) 2.3 10 ^3/uL (0.4-5.4); Lymphocytes % (auto) 26.4 % (10.0-50.0); Mean Corpuscular Hemoglobin 22.7 pg (28.0-32.0); Mean Corpuscular Hgb Conc. 30.5 g/dL (32.0-36.0); Mean Corpuscular Volume 74.4 fL (80.0-100.0); Monocytes # (auto) 0.3 10 ^3/uL (0-1.3); Monocytes % (auto) 3.8 % (0.0-12.0); Neutrophils % (auto) 67.8 % (37.0-80.0); Nucleated Red Blood Cells % 0.2 %; Potassium 3.9 mmol/L (3.5-5.1); Red Blood Cells 2.12 10^6/uL (4.0-5.20); Red Cell Distribution Width 17.5 % (11.8-14.3); Sodium 137 mmol/L (136-145); White Blood Cell 8.9 10^3/uL (4.4-10.8)
[2023-11-19 10:40] LABS: Anion Gap 9 (5-15); Calcium 8.8 mg/dL (8.5-10.1); Carbon Dioxide 22 mmol/L (20-30)
[2023-11-19 10:45] LABS: BUN/Creatinine Ratio 10.4 (10.0-20.0); Blood Urea Nitrogen 10 mg/dL (9-23); Glucose 132 mg/dL (74-106)
[2023-11-19 10:49] LABS: Hemoglobin 4.8 g/dL (12.2-16.2)
[2023-11-19] MEDS ORDERED: NITROGLYCERIN 0.4 MG SL TAB SL PRN (12:45)
[2023-11-19] MEDS ORDERED: MORPHINE SULFATE INJ 2 MG/ml SYRG IV PRN (12:45)
[2023-11-19] MEDS ORDERED: ACETAMINOPHEN 325 MG TAB PO PRN (12:45)
[2023-11-19 13:10] LABS: Triglycerides 158 mg/dL (< 150)
[2023-11-19 13:11] LABS: LDL Cholesterol 105 mg/dL (< 100)
[2023-11-19 13:12] LABS: Cholesterol 151 mg/dL (< 200); HDL Cholesterol 27 mg/dL (40-59)
[2023-11-19] MEDS ORDERED: IOHEXOL 350 MG/ML 100ML IJ ONE ×2 (14:31→15:52)
[2023-11-19 18:03] LABS: Hematocrit 18.2 % (36.0-46.0)
[2023-11-19 18:11] LABS: Hemoglobin 5.7 g/dL (12.2-16.2)
[2023-11-19 22:09] LABS: COVID19 ANTIGEN SOFIA FIA NEGATIVE (NEGATIVE)
[2023-11-19] MEDS: FUROSEMIDE 40 MG/4 ML VIAL IV SCH (23:49)
[2023-11-19] MEDS: ATORVASTATIN 20 MG TAB PO SCH (23:49)
[2023-11-20] VITALS (11 sets, daily range): BP systolic 97–139; BP diastolic 44–68; PULSE 73–93; RESP 18–21; TEMP 97.7–98.7; O2SAT 92–99
[2023-11-20 02:08] LABS: Urine Bacteria FEW /hpf (None Seen); Urine Blood 2+ /uL (Negative); Urine Clarity Clear (Clear); Urine Color Colorless (Yellow); Urine Hyaline Cast FEW /lpf (0 - 2); Urine Protein, UAD Negative (Negative); Urine Specific Gravity 1.008 (1.001-1.035); Urine Urobilinogen Normal (Negative); Urine WBC 3 /hpf (0 - 5); Urine pH 5.5 (5.0-8.0)
[2023-11-20 02:51] LABS: Rapid Influenza A Negative (Negative); Rapid Influenza B Negative (Negative)
[2023-11-20 02:52] LABS: Amphetamine Screen, Urine Neg (NEGATIVE); Barbiturate Scree,Urine Neg (NEGATIVE); Benzodiazephine Screen, Urine Neg (NEGATIVE); Cannabinoid Screen, Urine Neg (NEGATIVE); Cocaine Screen, Urine Neg (NEGATIVE); Opiate Scree,Urine Neg (NEGATIVE); Phencyclidine Screen, Urine Neg (NEGATIVE)
[2023-11-20] MEDS: FUROSEMIDE 40 MG/4 ML VIAL IV SCH ×2 (05:35→17:04)
[2023-11-20 08:05] LABS: Basophils # (auto) 0 10 ^3/uL (0-0.2); Basophils % (auto) 0.5 % (0.0-2.0); Eosinophils # (auto) 0.2 10 ^3/uL (0-0.8); Eosinophils % (auto) 2.5 % (0.0-7.0); Hematocrit 27.7 % (36.0-46.0); Hemoglobin 9.2 g/dL (12.2-16.2); Lymphocytes # (auto) 1.8 10 ^3/uL (0.4-5.4); Lymphocytes % (auto) 18.7 % (10.0-50.0); Mean Corpuscular Hemoglobin 27.1 pg (28.0-32.0); Mean Corpuscular Hgb Conc. 33.1 g/dL (32.0-36.0); Monocytes # (auto) 0.6 10 ^3/uL (0-1.3); Monocytes % (auto) 5.8 % (0.0-12.0); Neutrophils # (auto) 7.1 10 ^3/uL (1.6-8.6); Neutrophils % (auto) 72.5 % (37.0-80.0); Nucleated Red Blood Cells % 0.4 %; Red Blood Cells 3.38 10^6/uL (4.0-5.20); Red Cell Distribution Width 21.7 % (11.8-14.3); White Blood Cell 9.8 10^3/uL (4.4-10.8)
[2023-11-20 08:14] LABS: Albumin 4.1 g/dL (3.2-4.8); Alkaline Phosphatase 86 U/L (46-116); Anion Gap 10 (5-15); Aspartate Aminotransferase 17 U/L (13-40); BUN/Creatinine Ratio 6.9 (10.0-20.0); Blood Urea Nitrogen 7 mg/dL (9-23); Carbon Dioxide 24 mmol/L (20-30); Chloride 105 mmol/L (98-107); Glucose 102 mg/dL (74-106); Potassium 3.8 mmol/L (3.5-5.1); Sodium 139 mmol/L (136-145)
[2023-11-20 08:15] LABS: Total Protein 6.6 g/dL (5.7-8.2)
[2023-11-20] MEDS: EMPAGLIFLOZIN 10 MG TAB PO SCH (08:15)
[2023-11-20 08:20] LABS: Alanine Aminotransferase < 9 U/L (7-40)
[2023-11-20] MEDS ORDERED: ENOXAPARIN SOD 40 MG/0.4 ML SYRINGE SC SCH (10:00)
[2023-11-20] MEDS: ATORVASTATIN 20 MG TAB PO SCH (21:08)
[2023-11-21] VITALS (7 sets, daily range): BP systolic 113–126; BP diastolic 57–83; PULSE 65–90; RESP 16–22; TEMP 97.8–98.3; O2SAT 94–100
[2023-11-21 05:12] LABS: Basophils # (auto) 0.1 10 ^3/uL (0-0.2); Basophils % (auto) 0.7 % (0.0-2.0); Eosinophils # (auto) 0.3 10 ^3/uL (0-0.8); Eosinophils % (auto) 3.9 % (0.0-7.0); Hematocrit 26.7 % (36.0-46.0); Hemoglobin 8.9 g/dL (12.2-16.2); Lymphocytes # (auto) 3.1 10 ^3/uL (0.4-5.4); Lymphocytes % (auto) 40.2 % (10.0-50.0); Mean Corpuscular Hemoglobin 27.7 pg (28.0-32.0); Mean Corpuscular Hgb Conc. 33.5 g/dL (32.0-36.0); Mean Corpuscular Volume 82.8 fL (80.0-100.0); Monocytes # (auto) 0.7 10 ^3/uL (0-1.3); Monocytes % (auto) 8.9 % (0.0-12.0); Neutrophils # (auto) 3.5 10 ^3/uL (1.6-8.6); Neutrophils % (auto) 46.3 % (37.0-80.0); Nucleated Red Blood Cells % 0.3 %; Red Blood Cells 3.22 10^6/uL (4.0-5.20); White Blood Cell 7.6 10^3/uL (4.4-10.8)
[2023-11-21 05:18] LABS: Calcium 8.9 mg/dL (8.5-10.1); Chloride 105 mmol/L (98-107); Potassium 3.6 mmol/L (3.5-5.1); Sodium 139 mmol/L (136-145)
[2023-11-21 05:19] LABS: Anion Gap 9 (5-15); Carbon Dioxide 25 mmol/L (20-30)
[2023-11-21 05:24] LABS: BUN/Creatinine Ratio 8.1 (10.0-20.0); Blood Urea Nitrogen 9 mg/dL (9-23); Glucose 102 mg/dL (74-106)
[2023-11-21] MEDS: FUROSEMIDE 40 MG/4 ML VIAL IV SCH ×2 (06:35→17:20)
[2023-11-21] MEDS: EMPAGLIFLOZIN 10 MG TAB PO SCH (08:24)
[2023-11-21] MEDS ORDERED: GADOTERATE MEG 10 MMOL/20ml INJ (0.5MMOL/ml) IV ONE (14:18)
[2023-11-21] MEDS: ATORVASTATIN 20 MG TAB PO SCH (21:39)
[2023-11-22 05:00] VITALS: BP 116/56; PULSE 78; RESP 18; TEMP 98.2; O2SAT 95
[2023-11-22 05:15] LABS: Basophils # (auto) 0.1 10 ^3/uL (0-0.2); Eosinophils # (auto) 0.3 10 ^3/uL (0-0.8); Hemoglobin 9.7 g/dL (12.2-16.2); Neutrophils # (auto) 4.7 10 ^3/uL (1.6-8.6); Nucleated Red Blood Cells % 0.2 %
[2023-11-22 05:18] LABS: Basophils % (auto) 0.6 % (0.0-2.0); Eosinophils % (auto) 2.7 % (0.0-7.0); Hematocrit 29.9 % (36.0-46.0); Lymphocytes # (auto) 3.5 10 ^3/uL (0.4-5.4); Mean Corpuscular Hemoglobin 26.5 pg (28.0-32.0); Mean Corpuscular Hgb Conc. 32.3 g/dL (32.0-36.0); Mean Corpuscular Volume 81.9 fL (80.0-100.0); Monocytes # (auto) 0.8 10 ^3/uL (0-1.3); Monocytes % (auto) 8.2 % (0.0-12.0); Neutrophils % (auto) 50.5 % (37.0-80.0); Red Blood Cells 3.65 10^6/uL (4.0-5.20); White Blood Cell 9.2 10^3/uL (4.4-10.8)
[2023-11-22 05:29] LABS: Red Cell Distribution Width 22.8 % (11.8-14.3)
[2023-11-22 05:31] LABS: Albumin 4.3 g/dL (3.2-4.8); Alkaline Phosphatase 83 U/L (46-116); Anion Gap 12 (5-15); Aspartate Aminotransferase 15 U/L (13-40); BUN/Creatinine Ratio 13.8 (10.0-20.0); Bilirubin, Total 0.8 mg/dL (0.2-1.0); Blood Urea Nitrogen 13 mg/dL (9-23); Calcium 8.9 mg/dL (8.7-10.4); Carbon Dioxide 23 mmol/L (20-30); Chloride 103 mmol/L (98-107); Glucose 100 mg/dL (74-106); Potassium 3.6 mmol/L (3.5-5.1); Sodium 138 mmol/L (136-145); Total Protein 6.7 g/dL (5.7-8.2)
[2023-11-22 05:34] LABS: Alanine Aminotransferase < 9 U/L (7-40)
[2023-11-22] MEDS: FUROSEMIDE 40 MG/4 ML VIAL IV SCH (06:01)
[2023-11-22 08:05] VITALS: BP 124/66; PULSE 83; RESP 20; TEMP 98; O2SAT 97
[2023-11-22 08:30] VITALS: PULSE 70; PULSE 77; RESP 20
[2023-11-22] MEDS: EMPAGLIFLOZIN 10 MG TAB PO SCH (10:59)
[2023-11-22] MEDS ORDERED: [UNRECOGNIZED DRUG - CODE] PO (11:23)
[2023-11-22] MEDS ORDERED: FERR1TAB36 PO (11:23)
[2023-11-22 12:05] VITALS: BP 138/74; PULSE 87; RESP 18; TEMP 97.9; O2SAT 97
== END 2023-11-22 16:09 | disposition home or self-care (01) | DRG 663 ==
LOC: ER 09:28 → TELE 12:41 → TELE-WESTW 23:53
PROVIDERS: ADMIT Internal Medicine; ATTEND Internal Medicine
PROC: 30233N1 Transfusion of Nonautologous Red Blood Cells into Peripheral Vein, Percutaneous Approach (ICD-10-PCS; principal; 2023-11-19)
DX: D62 Acute posthemorrhagic anemia (principal); J96.00 Acute respiratory failure, unspecified whether with hypoxia or hypercapnia; I21.A1 Myocardial infarction type 2; I50.23 Acute on chronic systolic (congestive) heart failure; N93.8 Other specified abnormal uterine and vaginal bleeding; Z68.42 Body mass index [BMI] 45.0-49.9, adult; I11.0 Hypertensive heart disease with heart failure; N95.0 Postmenopausal bleeding; E66.01 Morbid (severe) obesity due to excess calories; Z20.822 Contact with and (suspected) exposure to COVID-19; E78.5 Hyperlipidemia, unspecified; I25.10 Atherosclerotic heart disease of native coronary artery without angina pectoris; Z79.02 Long term (current) use of antithrombotics/antiplatelets; Z80.0 Family history of malignant neoplasm of digestive organs; Z95.5 Presence of coronary angioplasty implant and graft; Z98.51 Tubal ligation status
CPT/HCPCS: 36415; 71045; 71275; 73723; 76830; 76856; 80048; 80053; 80061; 80307; 81001; 83880; 84484; 85014; 85018; 85025; 85379; 86850; 86900; 86901; 86920; 87081; 87426; 87804; 93005; 93306; 99291; G0378

== ENCOUNTER → 2023-12-19 | Outpatient (CLI) | payer MEDICAID ==
[~2023-12-19] MED LIST changes: +FERR1TAB36 PO; +[UNRECOGNIZED DRUG - CODE] PO
== END | disposition home or self-care (01) ==
LOC: LAB 12-18 11:05
PROVIDERS: ATTEND Obstetrics & Gynecology
DX: R87.611 Atypical squamous cells cannot exclude high grade squamous intraepithelial lesion on cytologic smear of cervix (ASC-H) (principal); N93.9 Abnormal uterine and vaginal bleeding, unspecified